=== PATIENT | female | born 1985 ===

== ENCOUNTER 2022-11-16 08:21 | Outpatient (AMB) | payer OTHER, SELFPAY ==
--- NOTE | 2022-11-16 08:25 | MHC.OFFVIS ---
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 Patient states My migraines started 2 years now, I mostly get ocular headaches. my ocular headaches last about 30 minutes and then the regular headaches would be 2 times month. Allergies sulfamethoxazole [From Bactrim] Allergy (Unknown, Verified 11/16/22 08:30) Unknown trimethoprim [From Bactrim] Allergy (Unknown, Verified 11/16/22 08:30) Unknown Medication List - Last Reconciled 11/16/22 by KATHRYN Rockwell magnesium oxide 400 mg PO BEDTIME 30 days riboflavin (vitamin B2) 400 mg PO DAILY 30 days sumatriptan succinate 50 - 100 mg orally at onset of headache, may repeat in 2 hrs PRN; max 2 tabs per day or 4 tabs/week (may take with Aleve) 30 days HPI HPI Comments History of Present Illness Details Right-handed 37-yr-old female presents for new pt evaluation of visual aura and headache disorder. Pt reports she had headaches in highschool and college, but this improved once she started wearing glasses. Pt reports that then in the last few years, she started having right sided headaches and separately started having visual aura w/o headaches w/o known precipitating factors. In between attacks, she feels tired and weak in general, but denies any focal weakness. Headache questionnaire: Preceding causes? None Previous work-up? Eye exams- normal. Typical visual aura characteristics: Can be right, left, or bialteral. Can start in 1 eye and move to the other. It starts as a small spot and expands into shimmering, colorful zigzags, it moves, and can make her feel off-balance. This lasts 20-30 minutes. But once she had an attack, took an hour long nap, and woke up with it which lasted 30 minutes. She does not have a headache, but will feel brain fog and tiredness which will last a few hours. Frequency is 2-3 days per week, and can have up to 2 attacks per day. Once, a few weeks ago, her vision became blurry, then felt like her vision collapsed in, and then it looked like the glass shattered and vision went black, felt like she might pass out but did not- this whole episode lasted 5 minutes. This also was not f/b headache, but was f/b brain fog and tiredness. Typical headache characteristics: Prodrome symptoms? Maybe some neck tension building. Aura? None Location, quality, characteristics? Right sided neck to frontal/eye, pressure, some pulsating Pain intensity? 7/10 Associated symptoms? Photophobia, nausea, dizziness, brain fog, fatigue, Focal weakness, Parethesias, Autonomic s/s? Right arm numbness/tingling and weakness, harder to keep her right eye open. Postdrome? migraine hangover Triggers? skipping meals Any positional, valsalva, exertional, sexual activity triggers? If she is more active- cleaning the house doing cardio at the gym- about 5-10 minutes later can have either the visual aura or the headache attack. Menstrual triggers? None- menses is regular. Time of day? no specific time of day. Duration? 3-4 hours Frequency? a couple of times per month. How does headache impact your life? Often needs to take a break from work- so far work has been accommodating. 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 Current acute medication use/interventions: Sherman blanco some Previous acute medication use: None Current preventative medication use: None Previous preventative medication use: None Non-pharmacological interventions: Rest. Other history of headache disorder? Neck History of musculoskeletal disorders or injury? No usual neck pain outside of headache attacks. Her arms often just feel weak, achey. She does wake up with arm arm discomfort at night. History of concussion/head injury? None History of mood disorder? Anxiety- well-controlled. History of sleep disorder? Sleeps 8-9 hrs, but wakes up unrested. Her tells her she snores. Can easily fall asleep when inactive, such as sitting at a computer, watching TV, driving in the am. She is prone to vivid dreams. Has a h/o sleep paralysis a/w vivid dreams. Unsure if she has cataplexy, but states she is clumsy just drops things at times. History of respiratory disease? None History of CV disease? None History of coagulopathy? None History of endocrine or metabolic disease? H/o gestational diabetes History of seizure? None History of GI disorder? GERD, IBS- varies but more diarrhea predominant. Family planning? None Family history of migraine or other headache disorder? None PFSH Surgical History H/O laparoscopy [place] teeth removed H/O section Family History Maternal Aunt Breast cancer in female Social History (Updated 11/16/22 @ 08:32 by VADIM Montague) Alcohol intake: never Patient Tobacco Use Status: Never used Tobacco Substance Use Type: Marijuana Review of Systems Const Details: See scanned ROS form Physical Exam Vital Signs: Last Vital Signs Pulse 92 11/16/22 08:28 BP 130/84 11/16/22 08:28 Pulse Ox 98 11/16/22 08:28 Oxygen Delivery Method Room Air 11/16/22 08:28 BMI result Body Mass Index 34.6 Const Orientation/consciousness: patient oriented x3 HEENT Other: No palpable scalp tenderness. Mallampati grade 4 Head: Yes normocephalic Resp Effort & Inspection: normal respiratory effort and able to speak in complete sentences Back/Spine/Pelvis Other: Bilateral posterior cervical tightness. Cervical ROM: slightly limited in extension Left Spurling: elicits non-radiating neck discomfort Right Spurling: elicits non-radiating neck discomfort Neuro Other: BUE negative Tinel, Phalen, medial compression tests. Hand grasps equal, 5-/5, otherwise MS 5/5 throughout General: patient oriented x3 Cranial nerves: Yes CN's II-XII intact bilaterally (w/ exception of asymmetric palpebral fissures (R < L)) Cognition (Neuro): normal cognition Gait exam (Neuro): Normal gait present Deep tendon reflexes (DTR's): Right triceps reflex intensity grade: 1+, Left triceps reflex intensity grade: 1+, Rt Biceps (C5, C6): 1+, Left biceps reflex intensity grade: 1+, Right brachioradialis reflex intensity grade: 1+, Left brachioradialis reflex intensity grade: 1+, Right patellar reflex intensity grade: 1+ and Left patellar reflex intensity grade: 1+ Coordination: [id number] test normal, tandem gait normal and Romberg test negative Pupils: Normal pupillary reactivity/response: bilateral Psych Appearance: grossly normal Mental Status: mental status grossly normal Speech and movement: Normal speech and movement present Affect: normal affect Attitude: cooperative Thought process: Normal thought process present Assessment & Plan Assessment & Plan (1) Visual aura: Comment: Typically positive visual aura. One episode of negative aura w/ transient vision loss. Code(s): H53.9 - Unspecified visual disturbance (2) Right-sided headache: Code(s): R51.9 - Headache, unspecified (3) Snoring: Code(s): R06.83 - Snoring (4) Excessive daytime sleepiness: Code(s): G47.19 - Other hypersomnia (5) Fatigue: Code(s): R53.83 - Other fatigue (6) Short palpebral fissure: Comment: Right decreased palpebral fissure Code(s): R68.89 - Other general symptoms and signs (7) Transient visual loss: Code(s): H53.129 - Transient visual loss, unspecified eye Plan Pt advised to undergo brain MRI w/wo to assess for secondary causes of visual aura w/o headache. Pt advised to undergo brain EEG to assess for any epileptic etiology of visual aura Pt advised to undergo brain to assess for sleep apnea. For overall headache management: Discussed importance of good self-care, including but not limited to maintaining a healthy diet, adequate fluid intake, adequate sleep, and engaging in regular physical activity. For headache triggers: Track headaches, especially after any treatment regimen changes. Migraine [employer] is one of many headache tracking apps. Light sensitivity tips: Patient may try blue light filtering glasses, green glasses, green light therapy.. For acute headache treatment: Discussed importance of taking acute medications at the first sign of headache, however stressed importance of avoiding acute medication overuse (especially with combined headache medications). Trial Sumatriptan 100mg tab, 1/2 - 1 tab (50-100mg) at onset of headache, may repeat in 2 hours. Max of 2 tabs (200mg) per 24 hours. May adjunct with Naproxen 440mg q 12 hrs prn. Reviewed potential adverse effects of triptans, including but not limited to nausea, fatigue, chest tightness/tingling (usually passes within a few minutes), medication overuse headaches. Previous acute migraine medication trials: Aleve- incomplete effect Acute migraine medication contraindications: None at this time For headache prevention medication: Discussed that preventative medications should be taken routinely as prescribed for best effect, it may take several weeks for full effect to take effect. Start Riboflavin 400mg qam Start Magnesium 400mg qhs Previous migraine prevention medication trials: None Migraine prevention medication contraindications: None at this time Pt to follow-up in 3 months or sooner prn. Orders: Orders MR head/brain wo/w con Today H53.129 - Transient visual loss, unspecified eye, H53.9 - Unspecified visual disturbance, R51.9 - Headache, unspecified, R68.89 - Other general symptoms and signs RT home sleep study Today G47.19 - Other hypersomnia, R06.83 - Snoring, R53.83 - Other fatigue EEG electroencephalogram Today H53.9 - Unspecified visual disturbance Medications: New magnesium oxide may hold for loose stools 400 mg PO BEDTIME 30 tabs 6RF 30 days riboflavin (vitamin B2) 400 mg PO DAILY 30 tabs 6RF 30 days sumatriptan succinate 50 - 100 mg orally at onset of headache, may repeat in 2 hrs PRN; max 2 tabs per day or 4 tabs/week (may take with Aleve) 12 tabs 6RF migraine headache 30 days Coding Level of Care Code New Pt Level 4 (45422) Diagnoses Visual aura H53.9 Right-sided headache R51.9 Snoring R06.83 Excessive daytime sleepiness G47.19 Fatigue R53.83 Short palpebral fissure R68.89 Transient visual loss H53.129
[2022-11-16 08:28] VITALS: BP 130/84; PULSE 92; O2SAT 98; BMI 34.6
== END 2022-11-16 09:37 | disposition home or self-care (01) ==
PROVIDERS: PCP Internal Medicine; Visit Provider Nurse Practitioner Family
DX: H53.9 Unspecified visual disturbance (principal); R51.9 Headache, unspecified; R06.83 Snoring; G47.19 Other hypersomnia; R53.83 Other fatigue; R68.89 Other general symptoms and signs; H53.129 Transient visual loss, unspecified eye
CPT/HCPCS: 99204

== ENCOUNTER → 2022-11-16 08:21 | Outpatient (BNVA) | payer OTHER, SELFPAY | PROVIDERS: PCP Internal Medicine; Visit Provider Nurse Practitioner Family ==

== ENCOUNTER 2022-12-01 12:42 | Outpatient (REF) | payer OTHER, SELFPAY ==
--- NOTE | 2022-12-01 12:46 | EEG_ITS ---
FINDINGS: The waking background activity consists of a 9 hertz posterior alpha frequency intermixed anteriorly with low-voltage fast frequencies. Photic stimulation and hyperventilation are without activation. No focal, lateralizing, or paroxysmal discharges are seen. IMPRESSION: This waking EEG is within normal limits. MD EVONNE Carney/[facility] / [id number]
== END 2022-12-01 12:43 | disposition home or self-care (01) ==
LOC: HO.NEURO 12:42
PROVIDERS: Visit Provider Nurse Practitioner Family
DX: H53.9 Unspecified visual disturbance (principal)
CPT/HCPCS: 95816

== ENCOUNTER → 2022-12-23 13:02 | Outpatient (REF) | payer OTHER, SELFPAY | LOC: HO.SL 13:02 | PROVIDERS: PCP Internal Medicine; Visit Provider Nurse Practitioner Family | DX: G47.19 Other hypersomnia (principal); R06.83 Snoring; R53.83 Other fatigue | CPT/HCPCS: 95806 ==

== ENCOUNTER → 2022-12-23 13:12 | Outpatient (BNV) | payer OTHER, SELFPAY | PROVIDERS: PCP Internal Medicine; Visit Provider Psychiatry & Neurology Neurology | DX: R06.83 Snoring (principal) | CPT/HCPCS: 95806 ==

== ENCOUNTER 2023-01-28 08:07 | Outpatient (REF) | payer OTHER, SELFPAY ==
--- NOTE | ~2023-01-28 | MR_ITS ---
EXAMINATION: MR BRAIN WITHOUT AND WITH CONTRAST CLINICAL INFORMATION: Migraine without aura. COMPARISON: None. TECHNIQUE: Multiplanar, multisequence imaging of the brain was performed before and after the intravenous administration of 8.5 mL of Gadavist. FINDINGS: No diffusion abnormalities are identified to suggest an acute or subacute infarct. The ventricles are normal in size. No mass effect or midline shift is seen. No brain parenchymal signal abnormality is noted. No extra-axial fluid collections are seen. The brainstem and cerebellum are normal. On postcontrast imaging, there is no abnormal parenchymal or leptomeningeal enhancement. The gradient refocused acquisition demonstrates no pathologic magnetic susceptibility artifact to indicate underlying acute or chronic blood products. The craniovertebral junction, marrow signal, and midline structures are normal. The major intracranial flow voids at the level of the [place] are preserved. The dural venous sinus flow voids are maintained. The mastoid air cells and paranasal sinuses are well aerated. MR/MR head/brain wo/w con IMPRESSION: Normal MRI of the brain.
[2023-01-28] MEDS: gadobutroL 10 ML VIAL IVPUSH (09:11)
== END 2023-01-28 08:08 | disposition home or self-care (01) ==
LOC: HO.MRI 08:07
PROVIDERS: PCP Internal Medicine; Visit Provider Nurse Practitioner Family
DX: H53.9 Unspecified visual disturbance (principal); R51.9 Headache, unspecified; R68.89 Other general symptoms and signs
CPT/HCPCS: 70553; A9585

== ENCOUNTER 2023-05-28 11:26 | Outpatient (AMB) | payer OTHER, SELFPAY ==
[2023-05-28 11:32] VITALS: BP 124/82; PULSE 82; O2SAT 97; BMI 33.3
--- NOTE | 2023-05-28 11:32 | MHC.OFFVIS ---
Intake Vital Signs 05/28/23 11:32 Height 5 ft 1 in Weight 176 lb BMI 33.3 BP 124/82 Blood Pressure Location Rt brachial Position Sitting Pulse 82 Pulse Source Pulse Oximeter Pulse Oximetry (%) 97 Oxygen Delivery Method Room Air Intake Visit Reasons: 3 mnts f/u appt-Conf Intake Note: Patient presents for 3 month follow up. no concerns just the typical stuff. Allergies sulfamethoxazole [From Bactrim] Allergy (Unknown, Verified 05/28/23 11:34) Unknown trimethoprim [From Bactrim] Allergy (Unknown, Verified 05/28/23 11:34) Unknown Medication List - Last Reconciled 05/28/23 by KATHRYN Rockwell magnesium oxide 400 mg PO BEDTIME 30 days riboflavin (vitamin B2) 400 mg PO DAILY 30 days sumatriptan succinate 50 - 100 mg orally at onset of headache, may repeat in 2 hrs PRN; max 2 tabs per day or 4 tabs/week (may take with Aleve) 30 days HPI HPI Comments History of Present Illness Details 37-yr-old female presents for f/u visit. Pt denies any significant interval medical changes. Pt reports she has not been having the visual auras have not been as frequent. The headache frequency has increased. She has had 2 migraine attacks in the last month. Once had to stop working. The Sumatriptan was not effective and caused a hot flash- after trying 3 times. Typical visual aura characteristics: Can be right, left, or bilateral. Can start in 1 eye and move to the other. It starts as a small spot and expands into shimmering, colorful zigzags, it moves, and can make her feel off-balance. This lasts 20-30 minutes. Not a/w headache, but will feel brain fog and tiredness which will last a few hours. Frequency is 2-3 days per week, and can have up to 2 attacks per day. Once, vision became blurry, then felt like her vision collapsed in, and then it looked like the glass shattered and vision went black, felt like she might pass out but did not- lasted 5 minutes. Not f/b headache, but was f/b brain fog and tiredness. Baseline headache characteristics: Prodrome symptoms: Maybe some neck tension building. Aura: None Moderate to severe Right sided neck to frontal/eye, pressure, some pulsating a/w Photophobia, nausea, dizziness, brain fog, fatigue, Right arm numbness/tingling and weakness, harder to keep her right eye open. Postdrome: migraine hangover PFSH Surgical History H/O laparoscopy [place] teeth removed H/O section Family History Maternal Aunt Breast cancer in female Social History Alcohol intake: never Patient Tobacco Use Status: Never used Tobacco Substance Use Type: Marijuana Physical Exam Vital Signs: Last Vital Signs Pulse 82 05/28/23 11:32 BP 124/82 05/28/23 11:32 Pulse Ox 97 05/28/23 11:32 Oxygen Delivery Method Room Air 05/28/23 11:32 BMI result Body Mass Index 33.3 Const General: cooperative and no acute distress Orientation/consciousness: patient oriented x3 Resp Effort & Inspection: normal respiratory effort and able to speak in complete sentences Neuro General: patient oriented x3 Cranial nerves: Yes CN's II-XII intact bilaterally Cognition (Neuro): normal cognition Psych Appearance: grossly normal Mental Status: mental status grossly normal Speech and movement: Normal speech and movement present Affect: normal affect Attitude: cooperative Assessment & Plan Assessment & Plan (1) Visual aura: Comment: Likely migraine aura without headache. Typically positive visual aura. One episode of negative aura w/ transient vision loss. Code(s): H53.9 - Unspecified visual disturbance (2) Right-sided headache: Code(s): R51.9 - Headache, unspecified (3) Migraine without aura: Code(s): G43.009 - Migraine without aura, not intractable, without status migrainosus Plan Reviewed brain MRI with without: Normal Reviewed EEG: Normal Reviewed HST: No evidence for sleep apnea with AHI 4 per hour and O2 swetha 87% (with SpO2 under 90% x's 1.1 minutes). ? For overall headache management: Optimize good self-care, including but not limited to maintaining a healthy diet, adequate fluid intake, adequate sleep, and engaging in regular physical activity. Track headaches. ? For acute headache treatment: Discussed importance of taking acute medications at the first sign of headache, however stressed importance of avoiding acute medication overuse (especially with combined headache medications). Discontinue Sumatriptan 100mg tab. Trial naratriptan 2.5 mg p.r.n. May adjunct with Naproxen 440mg q 12 hrs prn. Reviewed potential adverse effects of triptans, including but not limited to nausea, fatigue, chest tightness/tingling (usually passes within a few minutes), medication overuse headaches. Previous acute migraine medication trials: Aleve- incomplete effect. Sumatriptan was ineffective and caused hot flashes. Acute migraine medication contraindications: None at this time ? For headache prevention medication: Riboflavin 400mg qam Magnesium 400mg qhs Trial amitriptyline 10 mg q.h.s., and hopes this helps visual aura and migraine attacks. Previous migraine prevention medication trials: None Migraine prevention medication contraindications: None at this time ? Pt to follow-up in 6 months or sooner prn. Medications: New naratriptan take 1/2 - 1 tab at onset of headache; if no relief may repeat 1 tab after at least 4 hrs; max = 2 tabs/24 hrs orally PRN; 12 tabs 6RF migraine headache 30 days amitriptyline 10 mg PO BEDTIME 30 tabs 3RF 30 days Coding Level of Care Code Est Pt Level 4 (48546) Diagnoses Visual aura H53.9 Right-sided headache R51.9 Migraine without aura G43.009
== END 2023-05-28 12:15 | disposition home or self-care (01) ==
PROVIDERS: PCP Internal Medicine; Visit Provider Nurse Practitioner Family
DX: H53.9 Unspecified visual disturbance (principal); R51.9 Headache, unspecified; G43.009 Migraine without aura, not intractable, without status migrainosus
CPT/HCPCS: 99214

== ENCOUNTER → 2023-05-28 11:26 | Outpatient (BNVA) | payer OTHER, SELFPAY | PROVIDERS: PCP Internal Medicine; Visit Provider Nurse Practitioner Family ==